=== PATIENT | male | born 1985 | race Caucasian/White ===

== ENCOUNTER → 2016-08-01 | Outpatient (CLI) | payer OTHER ==
[~2016-08-01] MED LIST: ACID REDUCER 1150 MG PO; BENICAR20 MG PO; COLACE 100MG C100 MG PO; DEXILANT60 MG PO; INTRINSI B12-F1 EACH PO; LIPITOR TAB 2020 MG PO; NORCO 7.5-3251 EACH PO; VITAMIN D 11000 UNIT PO; VOLTAREN EC 7575 MG PO; ZOLOFT50 MG PO
== END ==
LOC: KOH-I 09:00
DX: R10.13 Epigastric pain (principal); K82.4 Cholesterolosis of gallbladder
CPT/HCPCS: 76705

== ENCOUNTER → 2016-08-08 | Outpatient (CLI) | payer OTHER ==
[2016-08-08 09:01] LABS: BUN/CREATININE RATIO 13 (0-10)
== END ==
PROVIDERS: Anesthesiology
DX: Z01.810 Encounter for preprocedural cardiovascular examination (principal); Z01.812 Encounter for preprocedural laboratory examination; I10 Essential (primary) hypertension; E78.00 Pure hypercholesterolemia, unspecified
CPT/HCPCS: 36415; 80048; 93005

== ENCOUNTER → 2016-08-11 | Day surgery (SDC) | payer OTHER ==
[~2016-08-11] VITALS: Ht 170.2 cm; Wt 90.7 kg
== END | disposition home or self-care (01) ==
LOC: OR 09:36
PROVIDERS: Surgery
PROC: 0FT44ZZ Resection of Gallbladder, Percutaneous Endoscopic Approach (ICD-10-PCS; principal; 2016-08-11 13:00)
DX: K81.1 Chronic cholecystitis (principal); R79.89 Other specified abnormal findings of blood chemistry; K21.9 Gastro-esophageal reflux disease without esophagitis; F41.1 Generalized anxiety disorder; E78.5 Hyperlipidemia, unspecified; I10 Essential (primary) hypertension; G47.00 Insomnia, unspecified; E29.1 Testicular hypofunction; G43.909 Migraine, unspecified, not intractable, without status migrainosus; Z87.891 Personal history of nicotine dependence; Z79.899 Other long term (current) drug therapy; Z98.818 Other dental procedure status; Z83.3 Family history of diabetes mellitus; Z83.49 Family history of other endocrine, nutritional and metabolic diseases; Z82.49 Family history of ischemic heart disease and other diseases of the circulatory system
CPT/HCPCS: J0690; J1200; J2250; J2405; J2710; J3010; J7030; J7120

== ENCOUNTER → 2016-09-18 | Outpatient (CLI) | payer OTHER | LOC: DTC 14:10 | DX: Z71.3 Dietary counseling and surveillance (principal); K31.84 Gastroparesis ==

== ENCOUNTER → 2020-10-23 | Outpatient (CLI) | payer BC ==
[~2020-10-23] MED LIST changes: +BACTROBAN NASAL1 G1 TOP; +CLEOCIN HCL300 MG PO
== END ==
LOC: NM 14:05
DX: R11.0 Nausea (principal)
CPT/HCPCS: 78264; A9541